=== PATIENT | female | born 1955 | race Caucasian/White ===

== ENCOUNTER 2020-08-17 08:30 | Inpatient (IN) | payer BC, OTHER ==
[2020-08-13 10:12] LABS: BASOPHILS # (AUTO) 0.1 (0.0-0.1); EOSINOPHILS # (AUTO) 0.4 (0.0-0.4); EOSINOPHILS % 5.8 % (0.0-6.0); HEMATOCRIT 38.6 % (34.2-44.1); HEMOGLOBIN 12.5 g/dL (12.0-16.0); LYMPHOCYTES # (AUTO) 1.8 (1.0-3.2); LYMPHOCYTES % 24.3 % (18.0-39.1); MEAN CORPUSCULAR HEMOGLOBIN 28.4 pg (28-32); MEAN CORPUSCULAR HGB CONC 32.4 g/dL (31-35); MEAN CORPUSCULAR VOLUME 87.7 fL (81-99); MONOCYTES # (AUTO) 0.5 (0.2-0.8); MONOCYTES % 6.9 % (4.4-11.3); NEUTROPHILS # (AUTO) 4.5 (2.1-6.9); NEUTROPHILS % 61.6 % (38.7-80.0); PLATELET COUNT 235 x10e3/uL (140-360)
[~2020-08-17] VITALS: Ht 165.1 cm; Wt 172.4 kg
[~2020-08-17 08:30] MED LIST: BUPROPION HCL100 MG PO; CARVEDILOL12.5 MG PO; CYCLOBENZAPRINE10 MG PO; EUTHYROX200 MCG PO; FOLIC ACID0.4 MG PO; LIOTHYRONINE SO5 MCG PO; MELOXICAM7.5 MG PO; MULTIVITAMINS1 EAC7 PO; SAVELLA50 MG PO; ULTRAM50 MG PO
[2020-08-17] MEDS ORDERED: LEVOFLOXACIN 500MG/D5W 100ML 100 ML IV ONE (08:56)
[2020-08-17] MEDS ORDERED: BUPIVACAINE 0.25% 30ML SDV INJ ONE (09:43)
[2020-08-17] MEDS ORDERED: SCOPOLAMINE 1.5 MG PATCH TOP SCH (10:30)
[2020-08-17] MEDS: LACTATED RINGER'S 1,000 ML IV SCH ×2 (10:30→17:53)
[2020-08-17] MEDS ORDERED: FENTANYL CITRATE/PF 100MCG/2 ML INJ ONE ×2 (12:08→13:05)
[2020-08-17] MEDS ORDERED: METOCLOPRAMIDE HCL 10 MG/2ML VIAL ONE (12:08)
[2020-08-17] MEDS ORDERED: PROMETHAZINE HCL (IM) 25 MG/ML VIAL IM ONE (12:23)
[2020-08-17] MEDS ORDERED: DEXAMETHASONE SOD PHOS INJ 4 MG/ML VIAL ONE (12:58)
[2020-08-17] MEDS ORDERED: LIDOCAINE HCL 2% LOCAL INJ 5 ML SDV VIAL INJ ONE (12:58)
[2020-08-17] MEDS ORDERED: SUCCINYLCHOLINE CHLORIDE 20 MG/ML 10ML VIAL ONE (12:58)
[2020-08-17] MEDS ORDERED: ROCURONIUM BROMIDE 10 MG/ML 5ML VIAL IV ONE (12:58)
[2020-08-17] MEDS ORDERED: ONDANSETRON HCL INJ 2MG/ML 2ML 2 MG/ML VIAL ONE (12:58)
[2020-08-17] MEDS ORDERED: PROPOFOL IV EMULSION 10 MG/ML 20 ML VIAL ONE (12:58)
[2020-08-17] MEDS ORDERED: SEVOFLURANE INHAL SOLN 250 ML PEN BTL ONE (12:58)
[2020-08-17 13:00] VITALS: BP 133/80
--- NOTE | 2020-08-17 13:00 | NUR ---
PHONE REPORT RECEIVED FROM PACU NURSE. PATIENT RECEIVED LYING IN BED COMFORTABLY IN NO ACUTE DISTRESS. PATIENT WAS EDUCATED ON FALL RISK PRECAUTIONS AND VERBALIZED UNDERSTANDING. CALL LIGHT AND BELONGINGS PLACED NEARBY. WILL CONTINUE TO MONITOR.
[2020-08-17] MEDS ORDERED: MIDAZOLAM HCL 2 MG/2 ML VIAL ONE (13:05)
--- NOTE | 2020-08-17 13:52 | Operative Report ---
DATE OF PROCEDURE: 08/17/2020 SURGEON: Jovanni Ceja MD PREOPERATIVE DIAGNOSES: 1. Morbid obesity, BMI 61. 2. Hypertension. 3. Fibromyalgia. 4. Multiple sclerosis. 5. Obstructive sleep apnea. POSTOPERATIVE DIAGNOSES: 1. Morbid obesity, BMI 61. 2. Hypertension. 3. Fibromyalgia. 4. Multiple sclerosis. 5. Obstructive sleep apnea. PREOPERATIVE INDICATION: Treat disease, prevent complications related to comorbid conditions of obesity. PROCEDURE: Laparoscopic vertical sleeve gastrectomy. ANESTHESIA: General. GLOBAL LEAD: Zbigniew Anthony, surgical 1st health assistant (needed due to complexity of case). FLUIDS: 800 mL crystalloid. EBL: 75 mL. DRAINS: None. COMPLICATIONS: None. SPECIMENS: Partial stomach. GRAFTS: None. FINDINGS: 1. Abundant intraabdominal adiposity with abundant amount of visceral adiposity. Otherwise, normal upper GI anatomy. 2. Negative intraoperative leak test. PROCEDURE IN DETAIL: The patient was brought to the operating room. She was intubated under general endotracheal anesthesia. She was positioned supine with both arms abducted and all pressure points appropriately padded. She was sterilely prepped and draped in the usual fashion. A preprocedure pause was performed identifying the patient, use of perioperative antibiotics, intended procedure, and staff surgeon. Access was gained via a 5 mm left subcostal incision using a Veress needle. The abdomen is insufflated and four additional trocars were placed in the standard position. Liver retractor was used to expose the stomach. The greater curvature of stomach was mobilized from about 4 cm proximal to the pyloric valve to the left natanael of the diaphragm. A 32-Frisian ViSiGi tube was inserted along the lesser curvature of the stomach. The greater curvature of stomach was resected with multiple firings of a 60 mm Medtronic purple load stapling device which was reinforced with TRS SeamGuard. Once that was complete, an intraoperative leak test was performed. No leaks were identified. There was a small rent made in the liver which was taken care with some direct pressure for the bleeding, which controlled the bleeding. Once that was completed, we then removed the partial stomach at the right periumbilical port site. The port site was closed with 0 Vicryl suture using a Lionel-West technique. We then again verified hemostasis, removed the liver retractor and desufflated the abdomen. Trocars were removed. Incision sites were closed with 4-0 Monocryl suture in a subcuticular fashion. Dermabond dressings were applied. 0.25% bupivacaine was used both at the preperitoneal incision sites. The patient tolerated the procedure well. Type of wound was type 2, clean, contaminated. All surgical sponge and instrument counts were correct. Jovanni Ceja MD Kayy/RENY /[id number]
[2020-08-17] MEDS ORDERED: HYDROMORPHONE 1MG/1ML INJ ONE (14:02)
[2020-08-17] MEDS: HYDROMORPHONE 1MG/1ML INJ IV PRN ×2 (15:59→20:25)
[2020-08-17] MEDS ORDERED: CYCLOBENZAPRINE HCL 10 MG TAB PO PRN (16:00)
[2020-08-17] MEDS: ONDANSETRON HCL INJ 2MG/ML 2ML 2 MG/ML VIAL IV PRN (16:15)
--- NOTE | 2020-08-17 16:49 | History and Physical ---
CHIEF COMPLAINT: "I had weight loss surgery." HISTORY OF PRESENT ILLNESS: This is a 65-year-old white woman, who was admitted to [facility] with a diagnosis of extreme obesity, BMI of 63, that was complicating her underlying hypertension. Today, the patient underwent successful laparoscopic vertical sleeve gastrectomy that was performed by Dr. Jovanni Ceja. The patient tolerated surgery quite well. The patient voices no complaints at this time. REVIEW OF SYSTEMS: GENERAL: Weight is stable. No fever or chills. HEENT: No headaches, no visual changes. CARDIOVASCULAR/RESPIRATORY: No chest pain, no shortness of breath. She does wheeze at times since she does have mild asthma. GI: She does have some abdominal pain at this time. Denies any nausea, vomiting, or diarrhea. : No Brantley catheter in place. NEUROMUSCULAR: No limb weakness or numbness, but she does suffer from fibromyalgia. ALLERGIES: 1. ACETAMINOPHEN. 2. MEPERIDINE. 3. MORPHINE. 4. TETRACYCLINE. HOME MEDICATIONS: 1. Bupropion 450 mg daily. 2. Carvedilol 12.5 mg b.i.d. 3. Cyclobenzaprine 10 mg once daily as needed for back spasms. 4. Cytomel 5 mcg daily. 5. Meloxicam 15 mg once daily. 6. Savella 50 mg b.i.d. 7. Multivitamin once daily. 8. Tramadol 50 mg once daily as needed for severe pain. 9. Folic acid 1200 mcg t.i.d. 10. Levothyroxine 200 mcg daily. FAMILY HISTORY: Mother of COPD, but she was heavy tobacco smoker. Father is still living,but he had a stroke. SOCIAL HISTORY: She is . She lives with her . She is employed as independent author of fictional work. She does not personally smoke tobacco, but she was exposed to secondhand tobacco smoke as a child. She drinks alcohol very rarely. PAST SURGICAL HISTORY: 1. Laparoscopic vertical sleeve gastrectomy today. 2. Appendectomy. 3. Total abdominal hysterectomy with bilateral salpingo-oophorectomy. 4. Laparoscopic cholecystectomy. 5. Bilateral knee arthroscopy. 6. Bilateral great toe surgery to correct hammertoes. 7. Right breast lumpectomy in 2009, because of breast cancer with subsequent radiation. PHYSICAL EXAMINATION: GENERAL: She is awake, alert. She is oriented. She is in no obvious distress. VITAL SIGNS: Blood pressure is 144/80, pulse is 90, respiratory rate is 16, ox saturation is 96% on 2 L oxygen. Height 5 feet 5 inches, weight is 378 pounds, BMI 63. INTEGUMENT: Skin is warm and dry. She does have slight pallor. No jaundice or diaphoresis. HEENT: Anterior sclerae. Moist mucous membranes. NECK: Supple. CARDIOVASCULAR: Tachycardic rate, regular rhythm. LUNGS: No rales, no rhonchi. No wheezes. ABDOMEN: Obese, yet benign. Her laparoscopic incisions are clean, dry, and intact. No bowel sounds are auscultated. EXTREMITIES: No edema or deformity. Sequential compression devices are present in her lower legs. NEUROLOGIC: Intact. No deficits appreciated. DIAGNOSES: 1. Extreme obesity, BMI 63, complicating underlying hypertension. 2. Status post laparoscopic vertical sleeve gastrectomy. 3. Hypertensive heart disease. 4. Fibromyalgia. 5. Asthma. PLAN: 1. Encourage incentive spirometer usage to prevent atelectasis. 2. Resume home medications in regard to the blood pressure control. 3. Hold all NSAIDs because of the patient's recent gastrectomy. 4. Pain control. 5. Mobilize the patient with therapy. 6. Initiate enoxaparin to prevent deep venous thrombosis. I would like to thank, Dr. Vaca for involving me in the care of this patient. MD ABDON Christianson/RENY /[id number] MTDMartin
[2020-08-17] MEDS: CARVEDILOL 12.5 MG TAB PO SCH (17:54)
[2020-08-17] MEDS: SAVELLA 50MG TAB PO SCH (17:54)
[2020-08-17 20:00] VITALS: BP 145/78
[2020-08-17] MEDS: FOLIC ACID 1 MG TAB PO SCH (20:25)
[2020-08-17] MEDS: ENOXAPARIN SOD INJ 40 MG/0.4 ML SYR SC SCH (20:25)
[2020-08-17] MEDS ORDERED: FOLIC ACID PO SCH (21:00)
[2020-08-18] VITALS: BP 126/61
[2020-08-18] MEDS: LACTATED RINGER'S 1,000 ML IV SCH ×2 (02:30→08:32)
[2020-08-18 04:00] VITALS: BP 114/44
[2020-08-18] MEDS ORDERED: LEVOTHYROXINE SODIUM 100 MCG TAB PO SCH (06:00)
[2020-08-18 06:03] LABS: BASOPHILS % 0.3 % (0.0-1.0); EOSINOPHILS # (AUTO) 0.1 (0.0-0.4); EOSINOPHILS % 0.5 % (0.0-6.0); HEMATOCRIT 36.9 % (34.2-44.1); HEMOGLOBIN 11.7 g/dL (12.0-16.0); LYMPHOCYTES # (AUTO) 1.9 (1.0-3.2); LYMPHOCYTES % 15.1 % (18.0-39.1); MEAN CORPUSCULAR HEMOGLOBIN 28.2 pg (28-32); MEAN CORPUSCULAR HGB CONC 31.7 g/dL (31-35); MEAN CORPUSCULAR VOLUME 88.9 fL (81-99); NEUTROPHILS # (AUTO) 9.4 (2.1-6.9); NEUTROPHILS % 75.6 % (38.7-80.0); PLATELET COUNT 239 x10e3/uL (140-360); RED BLOOD COUNT 4.15 x10e6/uL (3.6-5.1); RED CELL DISTRIBUTION WIDTH 14.8 % (11.7-14.4)
[2020-08-18] MEDS ORDERED: LIOTHYRONINE SODIUM 5 MCG TAB PO SCH (06:30)
[2020-08-18 06:37] LABS: ALANINE AMINOTRANSFERASE 53 IU/L (0-55); ALBUMIN/GLOBULIN RATIO 1.4 (0.8-2.0); ALKALINE PHOSPHATASE 83 IU/L (40-150); ANION GAP 11.6 mmol/L (8-16); BLOOD UREA NITROGEN 11 mg/dL (7-26); BUN/CREATININE RATIO 15 (6-25); CALCIUM 8.8 mg/dL (8.4-10.2); CARBON DIOXIDE 30 mmol/L (22-29); CHLORIDE 100 mmol/L (98-107); CREATININE, SERUM 0.74 mg/dL (0.57-1.11); EST GLOMERULAR FILTRATION RATE > 60 ML/MIN (60-); GLUCOSE 105 mg/dL (74-118); POTASSIUM 4.6 mmol/L (3.5-5.1); SODIUM 137 mmol/L (136-145)
--- NOTE | 2020-08-18 07:00 | NUR ---
RECEIVED PATIENT RESTING IN BED NO S/S OF DISTRESS. BED LOW, WHEELS LOCKED, SIDE RAILS X2. CALL LIGHT IN REACH WILL CONTINUE TO MONITOR PATIENT.
[2020-08-18] MEDS ORDERED: HYDROCODONE/APAP 7.5MG-325MG 1 EA TAB PO PRN (07:30)
--- NOTE | 2020-08-18 08:21 | NUR ---
PROGRESS NOTE S: No major complaints O: AF VSS, Gen- no acute distress, Abdomen- soft, incisions c/d/i A/P: POD s/p Lap sleeve gastrectomy -Clears, ambulate, IS, OOB to chair -Ok to d/c home if approved by hospitalist service -F/u in 1-2 weeks -Diet instructions provided to patient Janene Ceja MD
[2020-08-18] MEDS: ENOXAPARIN SOD INJ 40 MG/0.4 ML SYR SC SCH (08:32)
[2020-08-18] MEDS: CARVEDILOL 12.5 MG TAB PO SCH (08:32)
[2020-08-18] MEDS: FOLIC ACID 1 MG TAB PO SCH (08:32)
[2020-08-18] MEDS: SAVELLA 50MG TAB PO SCH (08:32)
[2020-08-18] MEDS: ONDANSETRON HCL INJ 2MG/ML 2ML 2 MG/ML VIAL IV PRN (08:48)
[2020-08-18] MEDS: HYDROMORPHONE 1MG/1ML INJ IV PRN (08:49)
[2020-08-18 08:52] VITALS: BP 122/77
[2020-08-18 08:53] VITALS: BP 122/77
[2020-08-18] MEDS ORDERED: MULTIVITAMINS/MINERALS TAB PO SCH (09:00)
[2020-08-18] MEDS ORDERED: BUPROPION HCL 100 MG TAB PO SCH (09:00)
[2020-08-18] MEDS ORDERED: BUPROPION HCL 150 MG TABCR PO SCH (09:00)
[2020-08-18] MEDS ORDERED: LEVOTHYROXINE SODIUM 200 MCG PO SCH (09:00)
[2020-08-18] MEDS ORDERED: ZOFRAN4 MG PO (09:53)
--- NOTE | 2020-08-18 11:05 | NUR ---
Nutrition Screen Note RD Recommendation for Physician: - Per MD discretion, advance to full liquids Plan of Care: RD following, monitoring for tolerance and adequacy Nutrition reason for involvement: MD Consult- diet education Primary Diagnose(s): lap sleeve gastrectomy PMH: obesity, appendectomy, cholecystectomy, HTN Ht: 65 in Wt: 380 lb BMI: 63.2 kg/m2 IBW: [address] Assessment: (08/18) 65 YOF admitted for lap sleeve gastrectomy. Pt seen per MD consult for diet education s/p lap sleeve gastrectomy. Pt educated on progression of diet- clear liquids, full liquids, and pureed. Advised to avoid all sugars, carbonation, gum, and use of straws. Pt educated on protein supplements and MVI/mineral rec's. All questions and concerns addressed at time of visit, diet education materials provided. Chart reviewed. Labs and meds reviewed. Current Diet: bariatric CLD Malnutrition Evaluation (08/18/20) The patient does not meet criteria for a specified degree of malnutrition at this time. Will re-evaluate at follow-up as appropriate. Diet Education Needs Assessment: Diet education indicated, pt receptive and education provided 08/18. Learner(s): pt Barriers: none Cultural/Language Modifications: none Readiness: ready Method: handouts, discussion Topics: diet progression s/p gastric bypass, supplements Understanding/Compliance: good Diet tolerance: tolerating CLD Nutrition Care Level: low Signed: Violeta Alcaraz RD, LD, [facility]
--- NOTE | 2020-08-18 12:10 | NUR ---
REMOVED PATIENTS IV. CATHETER TIP INTACT AND PRESSURE DRESSING APPLIED.
--- NOTE | 2020-08-18 12:15 | NUR ---
PATIENT DISCHARGED FROM FACILITY. PATIENT GATHERED ALL PERSONAL BELONGINGS, DISCHARGE INSTRUCTIONS AND FOLLOW UP INFORMATION. PATIENT LEFT UNIT IN WHEELCHAIR AND WENT HOME VIA PRIVATE AUTO.
[2020-08-18 12:19] VITALS: BP 120/55
--- NOTE | 2020-08-18 14:57 | NUR ---
Dictated DC summary: [id number]
--- NOTE | 2020-08-18 15:21 | Discharge Summary ---
ADMITTING DIAGNOSES: 1. Extreme obesity, BMI 63, complicating underlying hypertension. 2. Hypertensive heart disease. 3. Fibromyalgia. 4. Asthma. DISCHARGE DIAGNOSES: 1. Status post laparoscopic vertical sleeve gastrectomy. 2. Extreme obesity, BMI 63, complicating underlying hypertension. 3. Hypertensive heart disease. 4. Fibromyalgia. 5. Asthma. HOSPITAL COURSE: This is a 65-year-old white woman, who was initially admitted to [facility] with diagnosis of extreme obesity with BMI of 63 and this is complicating the underlying hypertension. During this hospitalization, the patient underwent successful laparoscopic vertical sleeve gastrectomy, which she tolerated quite well. The surgery was performed by her bariatric surgeon, namely Dr. Jovanni Ceja. Before discharge, the patient was tolerating a clear liquid diet and was not experiencing any pain. The patient's blood work performed on day of discharge was unremarkable [place] [id number] with 75% segmented neutrophils. The patient's condition on discharge was stable. DISCHARGE MEDICATIONS: 1. Ondansetron 4 mg by mouth every 4 hours p.r.n. nausea, 30 prescribed. 2. Bupropion 450 mg daily. 3. Carvedilol 12.5 mg b.i.d. 4. Folic acid 0.4 mg t.i.d. 5. Levothyroxine 200 mcg daily. 6. Cytomel 5 mcg daily. 7. Savella 50 mg b.i.d. 8. Multivitamin daily. 9. Tramadol 50 mg every 4 hours p.r.n. pain. The patient was told to stop meloxicam until further notice. FOLLOWUP INSTRUCTIONS: The patient was instructed to follow up with Dr. Jovanni Ceja in one week and with her primary care physician in 2 weeks. MD ABDON Christianson/RENY /[id number] cc: Jovanni Ceja MD MTDD
== END 2020-08-18 12:50 | disposition home or self-care (01) | DRG 621 ==
LOC: OR 08:30 → PACU V 14:00 → MED/SURG 15:07 → OBSVTOIN 16:20
PROVIDERS: ADMIT Internal Medicine; ATTEND Internal Medicine
PROC: 0DB64Z3 Excision of Stomach, Percutaneous Endoscopic Approach, Vertical (ICD-10-PCS; principal; 2020-08-17 10:30)
DX: E66.01 Morbid (severe) obesity due to excess calories (principal); M79.7 Fibromyalgia; Z68.44 Body mass index [BMI] 60.0-69.9, adult; G35 Multiple sclerosis; G47.33 Obstructive sleep apnea (adult) (pediatric); I11.9 Hypertensive heart disease without heart failure; J45.909 Unspecified asthma, uncomplicated; Z11.59 Encounter for screening for other viral diseases; Z85.3 Personal history of malignant neoplasm of breast; Z77.22 Contact with and (suspected) exposure to environmental tobacco smoke (acute) (chronic)
CPT/HCPCS: 36415; 80053; 83735; 84100; 85025; 88307; 93005; 96361; 97139; 99251; J0330; J1100; J1170; J1650; J1956; J2001; J2250; J2405; J2550; J2765; J3010; J7121; U0002